=== PATIENT | female | born 1980 | race Two or more races ===

== ENCOUNTER 2021-08-24 16:20 | Outpatient (REF) | payer OTHER, SELFPAY ==
[2021-08-28 14:13] LABS: H Pylori Breath Test Negative (Negative)
== END 2021-08-24 16:21 | disposition home or self-care (01) ==
LOC: HO.LNP 16:20
PROVIDERS: Visit Provider Physician Assistant
DX: Z01.818 Encounter for other preprocedural examination (principal); E66.01 Morbid (severe) obesity due to excess calories; Z90.3 Acquired absence of stomach [part of]
CPT/HCPCS: 83013